=== PATIENT | male | born 1985 | race Caucasian/White ===

== ENCOUNTER 2016-09-26 10:03 | Outpatient (CLI) | payer OTHER ==
[2016-09-26 10:26] LABS: % BASOPHILS 0.9 % (0.0-2.0); % EOSINOPHILS 6.1 % (0.0-5.0); % LYMPHOCYTES 32.4 % (20.0-50.0); % NEUTROPHILS 50.6 % (40.0-80.0); HEMATOCRIT 45.1 % (39.0-49.0); HEMOGLOBIN 15.1 gm/dL (13.2-17.3); MEAN CELL VOLUME 86.8 fl (80-99); MEAN CORPUSCULAR HEMOGLOBIN 29.1 pg (26.0-30.0); MEAN CORPUSCULAR HGB CONC 33.5 pg (28.0-36.0); MEAN PLATELET VOLUME 7.8 fl; NEUTROPHILE ABSOLUTE 2.8 Th/cmm (1.8-8.0); PLATELET COUNT 230 Th/cmm (150-400); RED BLOOD COUNT 5.19 Mil/cmm (4.30-5.70); RED CELL DISTRIBUTION WIDTH 13.2 % (11.5-20.0); WHITE BLOOD COUNT 5.3 Th/cmm (4.8-10.8)
[2016-09-26 10:50] LABS: ALB/GLOB RATIO 1.4 (1.0-1.8); ALKALINE PHOSPHATASE 34 U/L (34-104); ANION GAP 7.5 (7.0-16.0); BILIRUBIN,TOTAL 0.6 mg/dL (0.3-1.0); BUN - UREA NITROGEN 17 mg/dL (7-25); CALCIUM SERUM 9.7 mg/dL (8.6-10.3); CARBON DIOXIDE 26.7 mEq/L (21.0-31.0); CHLORIDE 106 mEq/L (98-107); CHOLESTEROL 186 mg/dL (<200); GLUCOSE 94 mg/dL (70-105); POTASSIUM SERUM 4.2 mEq/L (3.5-5.1); SGOT 16 U/L (13-39); SGPT/ALT 28 U/L (7-52); SODIUM SERUM 136 mEq/L (136-145); TRIGLYCERIDES 83 mg/dL (<150)
== END 2016-09-26 10:30 | disposition home or self-care (01) ==
LOC: LAB 10:03
DX: Z00.00 Encounter for general adult medical examination without abnormal findings (principal)
CPT/HCPCS: 36415-UA; 80053-TC; 80061-TC; 83036-90; 84443-TC; 85025-TC

== ENCOUNTER 2018-05-11 13:40 | Outpatient (CLI) | payer OTHER ==
--- NOTE | 2018-05-12 08:28 | Diagnostic Imaging Report ---
Lumbar spine 3 views Indication: Low back pain Comparison: none Findings: No acute compression fracture or subluxation. There may have been old trauma to the right L1 transverse process. Mild degenerative changes are seen primarily along the lower lumbar spine. The SI joints are preserved. Impression: Mild degenerative changes primarily along the lower lumbar spine. No acute compression fracture or subluxation. There may have been old trauma to the right L1 transverse process. If indicated follow up CT or MRI may be obtained for further assessment. In the setting of trauma, if clinical symptoms persist and there is continued concern for an occult fracture, follow up exams in 5-7 days is suggested.
== END 2018-05-11 14:45 | disposition home or self-care (01) ==
LOC: RAD 13:40
PROVIDERS: ATTEND Family Medicine
DX: M47.816 Spondylosis without myelopathy or radiculopathy, lumbar region (principal)
CPT/HCPCS: 72110-TC

== ENCOUNTER 2018-06-02 16:28 | Outpatient (CLI) | payer OTHER ==
[2018-06-03 21:10] LABS: CHLAMYDIA DNA SDA PROBETEC Negative (Negative)
== END 2018-06-02 17:15 | disposition home or self-care (01) ==
LOC: LAB 16:28
PROVIDERS: ATTEND Emergency Medicine Emergency Medical Services
DX: Z11.3 Encounter for screening for infections with a predominantly sexual mode of transmission (principal)
CPT/HCPCS: 87491-90